=== PATIENT | male | born 1960 | race Caucasian/White ===

== ENCOUNTER 2018-10-11 08:17 | Inpatient (IN) | payer BC ==
[~2018-10-11] VITALS: Ht 175.3 cm; Wt 84.0 kg
[2018-10-11 08:50] VITALS: BP 130/92
[2018-10-11] MEDS ORDERED: LACTATED RINGERS 1,000 ML IV SCH (08:55)
[2018-10-11] MEDS ORDERED: ALBU18HF INH (08:59)
[2018-10-11] MEDS ORDERED: BECL10.62 INH (08:59)
[2018-10-11] MEDS ORDERED: ACETAMINOPHEN 500 MG TABLET PO ONE (09:00)
[2018-10-11] MEDS ORDERED: GABAPENTIN 300 MG CAPSULE PO ONE (09:00)
[2018-10-11] MEDS ORDERED: GLUC500T11 PO (09:15)
[2018-10-11] MEDS ORDERED: CETI10CA PO (09:15)
[2018-10-11] MEDS ORDERED: IBUP-1484 PO (09:15)
[2018-10-11] MEDS ORDERED: LIDOCAINE-MPF 1%, 2ML INFIL ONE (09:30)
[2018-10-11] MEDS ORDERED: MIDAZOLAM 1 MG/ML, 2ML ONE (10:34)
[2018-10-11] MEDS ORDERED: FENTANYL PF 250 MCG/5ML ONE (10:34)
[2018-10-11] MEDS ORDERED: NEOSTIGMINE 1 MG/ML, 10ML ONE (10:39)
[2018-10-11] MEDS ORDERED: PROPOFOL 10 MG/ML, 20ML ONE (10:39)
[2018-10-11] MEDS ORDERED: CEFAZOLIN 1,000 MG ONE (10:39)
[2018-10-11] MEDS ORDERED: GLYCOPYRROLATE 0.2MG/1ML, 5ML ONE (10:39)
[2018-10-11] MEDS ORDERED: ROCURONIUM 10MG/ML,5ML ONE (10:39)
[2018-10-11] MEDS ORDERED: BUPIVACAINE/PF 0.5% ONE (11:44)
[2018-10-11] MEDS ORDERED: ONDANSETRON ODT 8 MG PO PRN (12:00)
[2018-10-11] MEDS ORDERED: MEPERIDINE/PF 25MG/0.5ML IVPush PRN (12:00)
[2018-10-11] MEDS ORDERED: MORPHINE SULFATE 4 MG/ML, 1ML IVPush PRN (12:00)
[2018-10-11] MEDS ORDERED: PROMETHAZINE 25 MG/ML, 1ML IM PRN ×2 (12:00)
[2018-10-11] MEDS ORDERED: OXYcodone 5 MG/5 ML ORAL.SOL UDC PO PRN (12:00)
[2018-10-11] MEDS ORDERED: PROMETHAZINE 25 MG SUPP PR PRN (12:00)
[2018-10-11] MEDS ORDERED: LABETALOL 5MG/ML, 20ML IV PRN (12:00)
[2018-10-11] MEDS ORDERED: ONDANSETRON 2MG/ML, 2ML IV PRN (12:00)
[2018-10-11] MEDS ORDERED: hydrALAzine 20 MG/ML, 1ML IV PRN ×2 (12:00→14:00)
[2018-10-11] MEDS ORDERED: PROMETHAZINE 12.5 MG SUPP PR PRN (12:00)
[2018-10-11] MEDS ORDERED: PROMETHAZINE 25 MG/ML, 1ML IV PRN (12:00)
[2018-10-11] MEDS ORDERED: FENTANYL PF 100 MCG/2ML ONE ×3 (13:00→13:57)
[2018-10-11] MEDS ORDERED: HYDROmorphone 1 MG/ML, 1ML ONE (13:57)
[2018-10-11] MEDS ORDERED: DIPHENHYDRAMINE 50 MG/ML, 1ML IV PRN (14:00)
[2018-10-11] MEDS: HYDROmorphone 2 MG/ML, 1ML IVPush PRN ×2 (14:00→14:10)
[2018-10-11] MEDS: FENTANYL PF 100 MCG/2ML IV PRN ×2 (14:05→14:20)
[2018-10-11] MEDS ORDERED: ONDANSETRON 2MG/ML, 2ML ONE (14:10)
[2018-10-11] MEDS ORDERED: OXYcodone 5 MG/5 ML ORAL.SOL UDC ONE (14:42)
[2018-10-11 15:30] VITALS: BP 113/77
[2018-10-11] MEDS: MORPHINE SULFATE 4 MG/ML, 1ML IVPush PRN ×4 (16:06→23:23)
[2018-10-11] MEDS: POTASSIUM CHLORIDE 20 MEQ in D5%-0.45% NACL 1,000 ML IV SCH (16:10)
[2018-10-11] MEDS: ONDANSETRON 2MG/ML, 2ML IVPush PRN (16:10)
[2018-10-11] MEDS: CEFAZOLIN PMX 2GM/50ML 50 ML IVPB SCH (18:12)
[2018-10-11 19:39] VITALS: BP 137/88
[2018-10-12 00:01] VITALS: BP 109/77
[2018-10-12] MEDS: POTASSIUM CHLORIDE 20 MEQ in D5%-0.45% NACL 1,000 ML IV SCH ×2 (00:38→07:40)
[2018-10-12] MEDS: OXYcodone/APAP 5/325MG TABLET PO PRN ×3 (01:31→08:39)
[2018-10-12] MEDS: CEFAZOLIN PMX 2GM/50ML 50 ML IVPB SCH (02:12)
[2018-10-12 04:15] VITALS: BP 117/76
[2018-10-12 05:28] LABS: BASOPHILS % (AUTO) 0 % (0-1); EOSINOPHILS # (AUTO) 0.03 x10^3/uL (0-0.4); EOSINOPHILS % (AUTO) 0 % (1-7); LYMPHOCYTES # (AUTO) 0.83 x10^3/uL (1-3.4); LYMPHOCYTES % (AUTO) 6 % (22-44); MD NO; MEAN CORPUSCULAR HEMOGLOBIN 29.6 pg (27.5-34.5); MEAN CORPUSCULAR HGB CONC 33.8 g/dL (33.2-36.2); MEAN CORPUSCULAR VOLUME 87.6 fL (81-97); MEAN PLATELET VOLUME 10.9 fL (7.4-10.4); MONOCYTES # (AUTO) 1.07 x10^3/uL (0.2-0.8); MONOCYTES % (AUTO) 8 % (2-9); NEUTROPHILS # (AUTO) 11.79 x10^3/uL (1.8-6.8); NEUTROPHILS % (AUTO) 86 % (42-75); PLATELET COUNT 202 x10^3/uL (130-400); RED BLOOD COUNT 4.48 x10^6/uL (4.38-5.82); RED CELL DISTRIBUTION WIDTH 12.9 % (9.4-14.8)
[2018-10-12 05:42] LABS: ALBUMIN 3.4 g/dL (3.4-5.0); ANION GAP 6 mmol/L (5-15); CALCIUM 7.9 mg/dL (8.5-10.1); CHLORIDE 105 mmol/L (98-107)
[2018-10-12] MEDS ORDERED: ENOXAPARIN 40 MG/0.4 ML SQ SCH (06:00)
[2018-10-12 07:20] VITALS: BP 115/73
[2018-10-12] MEDS: ONDANSETRON 2MG/ML, 2ML IVPush PRN ×2 (08:15→14:16)
[2018-10-12] MEDS ORDERED: OXYC-302 PO (10:59)
[2018-10-12] MEDS ORDERED: CEPH-368 PO (11:00)
[2018-10-12] MEDS ORDERED: PROMETHAZINE (11:03)
[2018-10-12] MEDS ORDERED: PHENERGAN PO (11:04)
[2018-10-12] MEDS ORDERED: ONDANSETRON ODT 4 MG ONE (14:11)
[2018-10-12 14:16] VITALS: BP 128/84
== END 2018-10-12 15:07 | disposition home or self-care (01) | DRG 355 ==
LOC: OUT 08:17 → ORIP 13:53 → 4NOR 15:20 → DCLOUNGE 10-12 14:50
PROVIDERS: ADMIT Surgery; ATTEND Surgery
PROC: 0WUF0JZ Supplement Abdominal Wall with Synthetic Substitute, Open Approach (ICD-10-PCS; principal; 2018-10-11 10:30)
DX: K43.2 Incisional hernia without obstruction or gangrene (principal); K42.9 Umbilical hernia without obstruction or gangrene; Z90.49 Acquired absence of other specified parts of digestive tract
CPT/HCPCS: 36415; J3490; 80048; 82040; 85025; G0378; J0690; J1170; J1650; J2250; J2405; J2704; J2710; J3010; J3480; C1781; J7120